=== PATIENT | male | born 1945 | race Caucasian/White ===

== ENCOUNTER → 2016-05-16 | Outpatient (CLI) | payer MEDICARE ==
[2016-05-16 15:08] LABS: Basophils % (A) 0 %; CHCM 35.9; Eosinophils # (A) 0.1 k/uL (0-0.7); Eosinophils % (A) 1 %; HCT 40.6 % (39.0-53.0); HGB 14.5 gm/dL (13.0-17.5); Luc # (Auto) 0.11; Luc % (Auto) 1; Lymphocytes # (A) 1.3 k/uL (1.0-4.8); Lymphocytes % (A) 15 %; MCHC 35.7 g/dL (31.0-37.0); MCV 95.2 fL (80.0-100.0); Mean Platelet Volume 8.1; Monocytes # (A) 0.7 k/uL (0-1.0); Monocytes % (A) 8 %; Neutrophils # (A) 6.6 k/uL (1.3-7.7); Neutrophils % (A) 75 %; RBC 4.26 m/uL (4.30-5.90); RDW 13.5 % (11.5-15.5); WBC 8.9 k/uL (3.8-10.6); WBC (Perox) 9.01
[2016-05-16 15:16] LABS: ALT 69 U/L (21-72); AST 68 U/L (17-59); Alkaline Phosphatase 73 U/L (38-126); Anion Gap 12 mmol/L; Blood Urea Nitrogen 22 mg/dL (9-20); Calcium 9.7 mg/dL (8.4-10.2); Carbon Dioxide 29 mmol/L (22-30); Chloride 105 mmol/L (98-107); Glucose 81 mg/dL (74-99); INR 1.1 (<1.1); Non-African American GFR(MDRD) >60 (>60 ml/min/1.73 sqM); Partial Thromboplastin Time 22.8 sec (22.0-30.0); Potassium 4.4 mmol/L (3.5-5.1); Prothrombin Time 10.7 sec (9.0-12.0); Sodium 146 mmol/L (137-145); Total Bilirubin 0.6 mg/dL (0.2-1.3); Total Protein 7.4 g/dL (6.3-8.2)
[2016-05-16 15:19] LABS: Appearance,Urine Clear (Clear); Bilirubin,Urine Negative (Negative); Glucose,Urine (UA) Negative (Negative); Ketones,Urine Negative (Negative); Leukocyte Esterase,Urine Negative (Negative); Nitrite,Urine Negative (Negative); PH, Urine 5.5 (5.0-8.0); Protein,Urine Negative (Negative); Specific Gravity,Urine 1.021 (1.001-1.035); UA Billing (MACRO vs. MICRO) CHEM; Urobilinogen,Urine <2.0 mg/dL (<2.0)
== END ==
LOC: LABPAT 14:38
PROVIDERS: ATTEND Orthopaedic Surgery Sports Medicine
DX: Z01.810 Encounter for preprocedural cardiovascular examination (principal); Z01.812 Encounter for preprocedural laboratory examination; Z51.81 Encounter for therapeutic drug level monitoring; Z79.01 Long term (current) use of anticoagulants
CPT/HCPCS: 36415; 80053; 81003; 85025; 85610; 85730; 87070

== ENCOUNTER 2016-05-25 13:25 | Inpatient (IN) | payer MEDICARE ==
[2016-05-29 15:33] VITALS: BMI 23.7
[2016-06-01] MEDS ORDERED: MELOXICAM 7.5 MG TAB PO ONE (05:00)
[2016-06-01] MEDS ORDERED: TRANEXAMIC ACID 1,000 MG in SODIUM CHLORIDE 0.9% 100 ML IVPB ONE ×4 (05:00)
[2016-06-01] MEDS ORDERED: CLINDAMYCIN 900 MG in DEXTROSE 5% IN WATER 50 ML IVPB ONE ×2 (05:00)
[2016-06-01] MEDS ORDERED: ACETAMINOPHEN TAB 500 MG TAB PO ONE (05:00)
[2016-06-01] MEDS ORDERED: ONDANSETRON 4 MG/2 ML VIAL IVP ONE ×2 (05:00→05:30)
[2016-06-01] MEDS ORDERED: MIDAZOLAM 2 MG/2 ML VIAL IV PRN (05:30)
[2016-06-01] MEDS ORDERED: HYDROmorphone 1 MG/ML 1 ML SYRINGE IVP PRN ×4 (05:30→14:12)
[2016-06-01] MEDS ORDERED: DEXAMETHASONE SOD PHOSPHATE 10 MG/ML 1 ML VIAL IV ONE (05:30)
[2016-06-01] MEDS ORDERED: VANCOMYCIN 1,000 MG in SODIUM CHLORIDE 0.9% 250 ML IVPB STA (09:21)
[2016-06-01 12:00] VITALS: RESP 16
[2016-06-01] MEDS ORDERED: LIDOCAINE 1% 20 ML VIAL (10MG/ML) FOR IV START SQ ONE (12:14)
[2016-06-01] MEDS: LACTATED RINGERS 1,000 ML IV SCH ×4 (12:15→23:39)
[2016-06-01] MEDS ORDERED: fentaNYL (PF) 50 MCG/ML 2 ML AMP ONE (13:48)
[2016-06-01] MEDS ORDERED: PROPOFOL 10 MG/ML 20 ML VIAL IV ONE (13:48)
[2016-06-01] MEDS ORDERED: TRANEXAMIC ACID 1,000 MG/10 ML VIAL ONE (13:48)
[2016-06-01] MEDS ORDERED: MIDAZOLAM 2 MG/2 ML VIAL ONE (13:48)
[2016-06-01] MEDS ORDERED: SODIUM CHLORIDE 0.9% 100 ML BAG ONE (13:48)
[2016-06-01] MEDS ORDERED: MORPHINE SULFATE (PF) 0.3 MG/0.3 ML SYR ONE (13:48)
[2016-06-01] MEDS ORDERED: ONDANSETRON 4 MG/2 ML VIAL IVP PRN (14:12)
[2016-06-01] MEDS ORDERED: BISACODYL 10 MG SUPP RECTAL PRN (14:12)
[2016-06-01] MEDS ORDERED: traMADol 50 MG TAB PO PRN (14:12)
[2016-06-01] MEDS ORDERED: VANCOMYCIN 1,200 MG in SODIUM CHLORIDE 0.9% 250 ML IVPB ONE (14:12)
[2016-06-01] MEDS ORDERED: NALOXONE 0.4 MG/ML 1 ML VIAL IV PRN (14:12)
[2016-06-01] MEDS ORDERED: hydrOXYzine PAMOATE 25 MG CAP PO PRN (14:12)
[2016-06-01] MEDS ORDERED: MAGNESIUM HYDROXIDE 2,400 MG/10 ML CUP PO PRN (14:12)
[2016-06-01] MEDS ORDERED: HYDROcodone/APAP 7.5-325MG 1 EACH TAB PO PRN ×2 (14:12)
[2016-06-01] MEDS ORDERED: ACETAMINOPHEN TAB 325 MG TAB PO PRN (14:12)
[2016-06-01] MEDS ORDERED: TEMAZEPAM 15 MG CAP PO PRN (14:12)
[2016-06-01] MEDS ORDERED: DIAZEPAM 5 MG TAB PO PRN (14:12)
[2016-06-01] MEDS ORDERED: NA PHOS,M-B/NA PHOS,DI-BA 133 ML ENEMA RECTAL PRN (14:12)
[2016-06-01] MEDS: ROPIVACAINE 246.25 MG, EPINEPHrine 0.5 MG, KETOROLAC 30 MG, cloNIDine HCL/PF 80 MCG, WA... MISCELLANE ONE ×10 (14:18→15:28)
[2016-06-01] MEDS ORDERED: ceFAZolin 3,000 MG in SODIUM CHLORIDE 0.9% IRRIGATIO 3,000 ML IRRIGATION ONE (14:21)
[2016-06-01] MEDS ORDERED: SODIUM CHLORIDE 0.9% 100 ML with ceFAZolin 2,000 MG IV ONE ×2 (14:21)
[2016-06-01] MEDS ORDERED: LACTATED RINGERS 1,000 ML IV ONE (14:38)
[2016-06-01] MEDS ORDERED: ceFAZolin 2 GM in SODIUM CHLORIDE 0.9% 100 ML IVPB SCH (16:00)
--- NOTE | 2016-06-01 16:20 | XR ---
EXAMINATION TYPE: XR knee limited LT DATE OF EXAM: 06/01/2016 4:11 PM COMPARISON: NONE HISTORY: 70-year-old male evaluation for postoperative abnormality and alignment TECHNIQUE: 2 views FINDINGS: Images show placement of left total knee arthroplasty. Both distal femoral and proximal tibial compon ents of the prosthesis appear well seated without periprosthetic fracture. Alignment is grossly anato alberto. Soft tissue swelling and soft tissue gas as well as intra-articular air and joint fluid compatib le with recent operation. IMPRESSION: Uncomplicated postoperative appearance left total knee arthroplasty.
[2016-06-01] MEDS: ASPIRIN 325 MG TAB PO SCH (20:41)
[2016-06-01] MEDS ORDERED: LATANOPROST 0.005% OPHTH DROPS 2.5 ML BTL RIGHT EYE SCH (21:00)
[2016-06-01] MEDS ORDERED: SENNOSIDES-DOCUSATE SODIUM 1 EACH TAB PO SCH (21:00)
[2016-06-01] MEDS: CLINDAMYCIN 900 MG in DEXTROSE 5% IN WATER 50 ML IVPB SCH ×2 (23:39)
[2016-06-02 03:45] VITALS: TEMP 97.9
[2016-06-02 07:44] VITALS: BP 135/67; PULSE 84
[2016-06-02 07:52] LABS: Basophils % (A) 0 %; CHCM 34.9; Eosinophils % (A) 0 %; HCT 34.1 % (39.0-53.0); HDW 3.12; HGB 11.7 gm/dL (13.0-17.5); Luc # (Auto) 0.12; Luc % (Auto) 1; Lymphocytes # (A) 0.9 k/uL (1.0-4.8); Lymphocytes % (A) 8 %; MCH 33.6 pg (25.0-35.0); MCHC 34.2 g/dL (31.0-37.0); MCV 98.1 fL (80.0-100.0); Mean Platelet Volume 8.3; Monocytes # (A) 0.9 k/uL (0-1.0); Monocytes % (A) 8 %; Neutrophils # (A) 9.5 k/uL (1.3-7.7); Neutrophils % (A) 83 %; RBC 3.47 m/uL (4.30-5.90); RDW 13.8 % (11.5-15.5); WBC 11.5 k/uL (3.8-10.6); WBC (Perox) 11.97
[2016-06-02] MEDS ORDERED: TIMOLOL 0.25% OPHTH DROPS 5 ML BTL BOTH EYES SCH (09:00)
--- NOTE | 2016-06-02 09:39 | P.DS ---
Providers Date of admission: 06/01/16 11:26 Expected date of discharge: 06/02/16 Attending physician: Natanael Talavera Consults: 06/01/16 14:12 Consult Physician Routine Consulting Provider: Johann Littlejohn Consult Reason/Comments: post op medical management Do you want consulting provider notified?: Yes Primary care physician: Armin Tapia Morales - Discharge Diagnosis(es) (1) Osteoarthritis of left knee Patient was admitted to the OR on 06/01/2016 to undergo left total knee arthroplasty. He had failed conservative measures as an outpatient and desired proceed with elective surgery after given informed consent. He underwent the above procedure without complication and tolerated well. On day of discharge he desires discharge to home. On day of discharge he is afebrile, vital signs stable, labs within acceptable ranges, wound is benign, calf is soft and nontender, abdomen is soft nontender, neurovascular status is intact, pain is controlled with oral pain medication, tolerating by mouth meds and diet, voiding without difficulty, passing flatus, denies numbness or tingling and has no new complaints. Review of systems is negative for fever, chills, chest pain , shortness breath, nausea, vomiting, dizziness, headaches, slurred speech or other. Current Visit: Yes Status: Acute Priority: Medium Procedures: Left total knee arthroplasty Patient Condition at Discharge: Good Plan - Discharge Summary New Discharge Prescriptions: Aspirin 325 mg PO BID #60 tab HYDROcodone/APAP 7.5-325MG [Brayton 7.5-325] 1 - 2 tab PO Q6HR PRN #60 tab PRN Reason: Pain Discharge Medication List Timolol 0.25% Ophth Soln [Timoptic 0.25% Ophth Soln] 1 drop BOTH EYES DAILY [History] Travoprost [Travatan Z 0.004%] 1 drop RIGHT EYE HS 05/29/16 [History] Aspirin 325 mg PO BID #60 tab 06/02/16 [Rx] HYDROcodone/APAP 7.5-325MG [Brayton 7.5-325] 1 - 2 tab PO Q6HR PRN #60 tab [Rx] Follow up Appointment(s)/Referral(s): Natanael Talavera MD [STAFF PHYSICIAN] - 10 Days Activity/Diet/Wound Care/Special Instructions: Take meds as directed Keep wound clean and dry Weightbearing as tolerated Follow-up with Dr. Talavera in office, [phone] Discharge Disposition: HOME WITH HOME HEALTH SERVICES
[2016-06-02] MEDS: CLINDAMYCIN 900 MG in DEXTROSE 5% IN WATER 50 ML IVPB SCH ×2 (09:52)
[2016-06-02] MEDS: ASPIRIN 325 MG TAB PO SCH (09:53)
--- NOTE | 2016-06-02 10:13 | P.PN ---
Progress Note - Text Date:06/02 Time:706 Patient is status post tkr. Patient seen this morning with VAS score of 0.no c/ o of pruritus, no c/o nausea/vomiting, comfortable and doing well.
--- NOTE | 2016-06-02 10:59 | OP ---
DATE OF SERVICE: 06/01/2016 SURGEON: JOHANN PIERCE MD GAMING CAGE CASHIER: RADHA HOLGUIN PREOPERATIVE DIAGNOSIS: Left knee osteoarthrosis. POSTOPERATIVE DIAGNOSIS: Left knee osteoarthrosis. OPERATION: Left total knee arthroplasty. ANESTHESIA: Spinal with sedation. ESTIMATED BLOOD LOSS: 100 mL. SPECIMENS REMOVED: COMPLICATIONS: None apparent. TOURNIQUET TIME: 62 minutes at 250 mmHg. DRAINS: None. DISPOSITION: Postanesthesia care unit. OPERATIVE FINDINGS: INDICATIONS: Dain is a very pleasant 70-year-old male with long-standing history of left knee pain. History and physical examination are consistent with advanced left knee osteoarthrosis. He has been through significant nonoperative management up to this point. Further treatment options were discussed and he has decided to go forward with left total knee arthroplasty. The risks of the procedure were discussed with him in detail. These risks include, but are not limited to risk of infection, nerve damage, bleeding, pain, and a small risk of deep vein thrombosis, which could lead to fatal pulmonary embolism. There is also a risk of loosening of the implant which could require revision operation. The patient understands these risks. All of his questions were answered to his satisfaction. An appropriate informed consent was obtained. DESCRIPTION OF PROCEDURE: Patient was identified in the preoperative holding area. The surgical site was marked by both the patient and myself. He was given 2 gm of Ancef IV for prophylactic purposes. He was then transferred to the operative suite where he was placed supine on the operating room table. A spinal anesthetic was then administered and dosed per the Anesthesia Department without apparent complication. Examination under anesthesia was then performed. The patient was 2 to 3 degrees shy of full extension. He had 110 degrees of flexion and the medial collateral ligament, lateral collateral ligament and posterior cruciate ligaments were stable. Tourniquet was then placed high on the left upper thigh, well padded in preparation for surgery. The patient's left lower extremity was then prepped and draped in the usual sterile fashion. Standard surgical pause was then undertaken to ensure that we were operating on correct site and that appropriate preoperative antibiotics had been given. All staff in the room were in agreement and we proceeded. The outlines of the patella were then marked with a surgical pen. A planned 12 cm vertical incision centered over the patella was marked with a surgical pen. The leg was then exsanguinated with an Esmarch dressing. The knee was then flexed and tourniquet was inflated to 250 mmHg. The total tourniquet time for the procedure was 62 minutes. Incision was then made with a 10 blade scalpel. Dissection was carried down sharply to the overlying fascia. Great care was taken to minimize the skin flaps. The knee was then exposed using a standard medial parapatellar approach. A small cuff of quadriceps tendon was left for suturing. He was in a bit of varus preoperatively. A standard medial release was then made. Superficial medial collateral ligament was dissected off of the bone around to the posterior aspect of the proximal tibia. The medial meniscus was then excised as well. The lateral meniscus was also released anteriorly. The leg was then externally rotated. The patella was then everted and the knee was then flexed. The retractor was then placed to protect the collateral ligaments. I then proceeded to remove the infrapatellar fat pad. This was excised sharply, tangentially with the fibers of the patellar tendon. I then proceeded to remove the peripheral osteophytes. This was done with a rongeur. I then proceeded with the distal femoral resection. He did have near full extension. A planned 9 mm resection was done. The femoral canal was then entered in the midline of the femur approximately 10 mm anterior to the origin of the posterior cruciate ligament. The kay was then advanced down the center of the femur and the kay was placed intramedullary. Based on preoperative radiographs, the angle between the anatomic and mechanical axis of the femur was approximately 4 to 5 degrees. The valgus angle of distal femoral cutting guide was then set at 4 degrees for the left knee. The distal femoral cutting guide was then advanced over the intramedullary kay. This was seated firmly against the femur. I then, as mentioned, planned to take 9 mm off the distal femur. The cutting block was then secured onto the femur with pins. The jig was then removed and the distal femoral cut was made through the slot of the block. The pins were then removed and the distal femoral cutting block was removed. The accuracy of the distal femoral cuts was checked with 2 flat bars. I then proceeded with femoral sizing. The posterior referencing sizing guide was held firmly against the resected distal surface of the femur. Posterior condyles were resting on the posterior plane of the guide. The sizing stylus was then placed onto the anterior femur. The size was measured at a size 11. I then assessed for femoral rotation. Plan was for 3 degrees of external rotation. 3 degrees of external rotation was placed onto the jig. These holes were then marked. I then confirmed the rotation by 3 separate methods. This was done using epicondylar axis as well as Whitesides line and posterior referencing. It was deemed that the external rotation was proper. I then went forward with placing the femoral cutting block. This was placed over the previously placed pinholes. The johnnie wing was then placed onto the anterior slots to ensure that we would not notch the anterior femur with the anterior femoral cut. I then proceeded with the anterior femoral cut. This was flush with the anterior cortex of the femur. Posterior cuts were then made followed by the anterior chamfer cut and the posterior chamfer cut. The cutting block was then removed. Throughout the resection, the collateral ligaments were protected with retractors. I then placed a trial size 11 femur, it fit very nice medial to lateral and fit flush with the distal end of the femur. The drill holes were then made. I then proceeded with the tibial cutter. I planned for cruciate-retaining knee. The guide was then placed and set for varus valgus, then for slope. The height was set for an approximate 2 mm resection from the medial tibial plateau, which was the lower side. I was happy with the alignment and the amount of resection. The cutting block was then pinned to the proximal tibia. The alignment kay was then removed and the proximal tibia was resected with the reciprocating saw. Again this was done with retractors, protecting the collateral ligaments as well as the posterior cruciate ligament. I then proceeded to reevaluate the flexion and extension gaps. A 10 mm block was placed. The flexion and extension gaps were equal. I then proceeded with resection of the posterior osteophytes. He had very minimal posterior osteophytes. This was done with a curved osteotome. This resected the posterior osteophytes and posterior capsule stripping was also done off the posterior aspect of the femur as well. Osteophytes were then removed. I then proceeded with resection of the patella. Thickness of the patella was measured using the caliper. The thickness was 22 mm. The thickness of the anticipated patellar dome was taken into account. Resection was then performed and confirmed to be equal in 4 quadrants using a caliper. Approximately 414 mm of bone remained after resection. A 35 x 9 mm standard patellar trial was then placed. The holes were then drilled and the trial was then placed. I then proceeded with sizing the tibial plate. Size G tibial plate fit very nicely. I then placed a trial femur, tibial tray and the patellar button. A 10 mm trial tibial insert was also placed. The components fit very nicely, I did full extension and flexion. The extension and flexion gaps were equal and stable to both varus and valgus stress. The patella tracked appropriately. Tibial tray rotation was then marked with a Bovie. This was externally rotated properly. I then proceeded with tibial preparation. I first drilled the femoral holes, removed femoral component. The tibial tray was then set for proper external rotation as well as mediolateral placement onto the tibia. It was then pinned into place. I then proceeded with punching the keel. I then decided with cementing of all of our components. The knee was thoroughly irrigated with sterile saline solution via pulse lavage. The lateral geniculate artery was identified and cauterized. All blood was removed from the bone of the tibia, femur and patella with pulse lavage. I then proceeded with cementing. Two packs of antibiotic bone cement were prepared on the back table by the certified surgical first assistant. I then proceeded with cementing the tibia first. The cement was impacted in the keel as well as deeply seated in the bone. A second coat of cement was then placed. The tibia was then impacted into place. Excess cement was removed with Stuart's and jokers. I then proceeded with cementing the femoral component. The femoral component was also cemented using standard technique. Excess cement was removed. A 12 mm trial insert was then placed into the knee. It was brought into full extension with a constant axial load placed until the cement had hardened. The patellar component was then cemented. This was held firmly with a compressive device until the cement had dried. When the cement had dried, the knee was taken out of extension. All excess cement was removed from around the prosthesis. I then trialed the knee with a 12 mm insert. Flexion-extension gaps were appropriate. I then trialed with a 13 mm insert. The flexion-extension gaps felt better. The knee was stable with a 13 mm insert. It came into full extension. I decided to go forward with 13 mm cross-linked cruciate-retaining tibial insert. The polyethylene was then placed onto the tibial tray and locked into place. The knee was then reduced. The knee was again further irrigated with sterile saline solution with antibiotic added. The tourniquet was then deflated. Total tourniquet time for the procedure was 62 minutes at 250 mmHg. Final components were a Pipe Persona size 11, cruciate-retaining femoral component a size G, tibial tray a 13 mm medial congruent cruciate retaining polyethylene insert and a 35 x 9 mm patella. I then proceeded with closure. Again, the knee was thoroughly irrigated. The quadriceps tendon and the medial retinaculum were reapproximated with #2 Ethibond suture. The extensor mechanism was then closed with running #2 Quill suture. Subcutaneous tissues then closed with 2-0 Vicryl interrupted suture. The skin was closed with a running 3-0 Quill suture. Dermabond was applied to the incision. Sterile compressive dressings were then applied. All sponge and needle counts were deemed correct prior to closure. The patient tolerated the procedure without apparent complication. He was transferred to the recovery room in stable condition.
--- NOTE | 2016-06-02 11:50 | CONS ---
DATE OF CONSULTATION: 06/02/2016 REASON FOR CONSULTATION: Medical management requested by Dr. Talavera. CONSULTATION: This is a pleasant 70-year-old patient of Dr. Armin Morales who has undergone a left total knee arthroplasty. Postprocedure, no nausea or vomiting. No chest pain. Pain is controlled. Did work with physical therapy. Sitting up in a chair. The patient has history of diverticulosis and left ear surgery for Meniere's disease, otherwise only other complaints of arthritis. REVIEW OF SYSTEMS: CONSTITUTIONAL: None. HEENT: ( ) off left ear. CARDIOVASCULAR: None. RESPIRATORY: None. GASTROINTESTINAL: None. GENITOURINARY: None. MUSCULOSKELETAL: Pain in the joints. DERMATOLOGIC: None. HEMATOLOGIC: None. LYMPHATIC: None. PSYCHIATRY: None. NEUROLOGICAL: None. Past medical history of eye disorder, diverticulitis, left ear Meniere's disease with surgery. PAST SURGICAL HISTORY: Left ear surgery. SOCIAL HISTORY: Does not smoke. Alcohol rarely. . HOME MEDICATIONS: 1. Travatan Z 0.004% one drop to the right eye q.h.s. 2. Timoptic 0.25% one drop to both eyes daily. Allergy to DURICEF. On exam, temperature 97.9, pulse 84, respirations 16, blood pressure 135/67, pulse ox 98% on room air. GENERAL APPEARANCE: Average built, sitting on the chair, comfortable. EYES: Pupils equal. Conjunctivae normal. HENT: Oral cavity normal. NECK: JVD not raised. Mass not palpable. RESPIRATORY: Effort normal. Lungs are clear. CARDIOVASCULAR: First and second sounds normal. No edema. ABDOMEN: Soft, nontender. Liver and spleen not palpable. PSYCHIATRY: Alert and oriented x3. Mood and affect normal. EXTREMITIES: Left knee in a dressing. White count 11.5, hemoglobin 11.7, platelets 105. ASSESSMENT: 1. Left total knee arthroplasty. 2. Leukocytosis likely reactive secondary to surgery. 3. Acute blood loss anemia expected from surgery. Hemoglobin before surgery was 14.5. PLAN: The patient may take [id number] iron supplementation. There is no evidence of infection. Patient clinically is doing rather well. Should follow up with primary doctor upon discharge. Thank you, Dr. Talavera.
[2016-06-02] MEDS ORDERED: MULTIVITAMINS, THERA 1 EACH TAB PO SCH (12:00)
== END 2016-06-02 15:33 | disposition home health service (06) | DRG 470 ==
LOC: 2ORMAIN 06-01 11:26 → 3SUR 06-01 16:23
PROVIDERS: ADMIT Orthopaedic Surgery Sports Medicine; ATTEND Orthopaedic Surgery Sports Medicine
PROC: 0SRD0J9 Replacement of Left Knee Joint with Synthetic Substitute, Cemented, Open Approach (ICD-10-PCS; principal; 2016-06-01 13:15)
DX: M17.12 Unilateral primary osteoarthritis, left knee (principal); D62 Acute posthemorrhagic anemia; D72.829 Elevated white blood cell count, unspecified; Z79.899 Other long term (current) drug therapy
CPT/HCPCS: 85025; 88300